=== PATIENT | male | born 1955 ===

== ENCOUNTER 2021-02-18 12:15 | Inpatient (IN) | payer OTHER ==
[~2021-02-18] VITALS: Ht 167.6 cm; Wt 70.3 kg
[2021-02-18] MEDS ORDERED: LANTUS SOL100 UNIT/1 (12:32)
[2021-02-18] MEDS ORDERED: HUMALOG100 UNIT/2 (12:32)
[2021-02-18] MEDS ORDERED: CYMBALTA20 MG (12:33)
[2021-02-18] MEDS ORDERED: AVAPRO150 MG (12:33)
[2021-02-18] MEDS ORDERED: LEVEMIR FL100 UNIT/1 (12:33)
[2021-02-18] MEDS ORDERED: GABAPENTIN400 MG (12:33)
[2021-02-18] MEDS ORDERED: CLONAZEPAM1 M1 (12:34)
[2021-02-18] MEDS ORDERED: TRAZODONE HCL100 MG (12:34)
[2021-02-18] MEDS ORDERED: ISOSORBIDE MONO60 MG (12:34)
[2021-02-18] MEDS ORDERED: LIPITOR80 MG (12:34)
[2021-02-18] MEDS ORDERED: TOPROL XL25 M1 (12:34)
[2021-02-18] MEDS ORDERED: LEVOTHYROXINE75 MC1 (12:35)
[2021-02-22] MEDS ORDERED: CIPRO500 MG PO (13:40)
[2021-02-22] MEDS ORDERED: INTESTINEX680 M1 PO (13:40)
[2021-02-22] MEDS ORDERED: TAMS0.4C PO (13:41)
[2021-02-22] MEDS ORDERED: PEPCID20 MG PO (13:42)
== END 2021-02-22 14:05 | disposition home or self-care (01) | DRG 690 ==
LOC: ER 12:15 → MEDI 20:20
PROVIDERS: ADMIT Internal Medicine; ATTEND Internal Medicine
PROC: 4A12X4Z Monitoring of Cardiac Electrical Activity, External Approach (ICD-10-PCS; principal; 2021-02-19)
PROC: B24BZZZ Ultrasonography of Heart with Aorta (ICD-10-PCS; 2021-02-22)
DX: N39.0 Urinary tract infection, site not specified (principal); N17.8 Other acute kidney failure; I95.89 Other hypotension; D72.828 Other elevated white blood cell count; I10 Essential (primary) hypertension; E11.9 Type 2 diabetes mellitus without complications; N41.8 Other inflammatory diseases of prostate; N18.30 Chronic kidney disease, stage 3 unspecified; E03.8 Other specified hypothyroidism; D47.3 Essential (hemorrhagic) thrombocythemia; I25.10 Atherosclerotic heart disease of native coronary artery without angina pectoris